=== PATIENT | male | born 1995 ===

== ENCOUNTER 2022-10-05 17:44 | Emergency (ER) | payer MEDICAID ==
[~2022-10-05] VITALS: Ht 175.3 cm; Wt 87.1 kg
[2022-10-05 17:49] VITALS: BP 120/69
--- NOTE | 2022-10-05 18:10 | NUR ---
BIB SELF C/O COUGH, VELASQUEZ , STUFFY NOSE X 2 WEEKS. COVID TESTED NEGATIIVE 5 DAYS AGO. PMH: DENIES
--- NOTE | 2022-10-05 18:45 | NUR ---
PT D/C BY DR. AGEE WITH DX OF ASTHMA AND RX OF BENZONATATE AND METHLYPRED-DP. PT AMBULATORY TO PERSONAL VEHICLE.
[2022-10-05] MEDS ORDERED: METH4TAB27 PO (18:49)
[2022-10-05] MEDS ORDERED: BENZ200C4 PO (18:49)
== END 2022-10-05 18:45 | disposition home or self-care (01) ==
LOC: MED 17:44
DX: J06.9 Acute upper respiratory infection, unspecified (principal); J45.909 Unspecified asthma, uncomplicated; Z79.899 Other long term (current) drug therapy
CPT/HCPCS: 99283